=== PATIENT | female | born 1995 | race African-American/Black ===

== ENCOUNTER 2021-12-03 21:50 | Inpatient (IN) ==
[2021-12-03] MEDS ORDERED: ONDANSETRON 4 MG/2 ML VIAL IV PRN (22:02)
[2021-12-03] MEDS ORDERED: CARBOPROST TROMETHAMINE 250 MCG/ML AMP IM PRN (22:02)
[2021-12-03] MEDS ORDERED: TRANEXAMIC ACID 1,000 MG in SODIUM CHLORIDE 0.9% 100 ML IV PRN (22:02)
[2021-12-03] MEDS ORDERED: MEPERIDINE 50 MG/1 ML VIAL IV PRN (22:02)
[2021-12-03] MEDS ORDERED: miSOPROStoL 200 MCG TABLET RECTAL PRN (22:02)
[2021-12-03] MEDS ORDERED: OXYTOCIN/LR 20 UNIT/1,000 ML BAG IV ONE (22:02)
[2021-12-03 22:41] LABS: Basophils # 0.1 10*3/uL (0.0-0.2); Basophils % 0.6 % (0.0-0.8); Eosinophils # 0.1 10*3/uL (0.0-0.87); Eosinophils % 1.1 % (0.00-10.9); Hematocrit 36.7 VOL% (35.7-47.0); Hemoglobin 12.4 GM/DL (12.0-16.0); Immature Granulocytes % 0.4 %; Immature Granulocytes Absolute 0.03 #; Lymphocytes # 1.9 10*3/uL (1.4-4.0); Lymphocytes % 23.1 % (21.3-54.2); Mean Corpuscular HGB Conc 33.8 GM/DL (32-36); Mean Corpuscular Volume 85.2 FL (87-102); Mean Platelet Volume 10.5 FL (9.6-12.0); Monocytes # 1.1 10*3/uL (0.11-0.8); Monocytes % 13.5 % (1.7-12.7); Neutrophils % 61.3 % (38.7-73.9); Platelet Count 297 T/CUMM (130-400); Red Blood Count 4.31 MC/CUMM (3.8-5.5); Red Cell Distribution Width 13.7 % (9.3-17.3); White Blood Count 8.4 T/CUMM (4-12)
[2021-12-03 22:56] LABS: Albumin 3.3 G/DL (3.4-5.0); Bilirubin,Total 0.4 MG/DL (0.20-1.00); Calcium 9.4 MG/DL (8.5-10.1); Potassium 4.1 MMOL/L (3.5-5.1); Total Protein 7.6 G/DL (6.4-8.2); Uric Acid 4.6 MG/DL (2.6-6.0)
[2021-12-03 23:02] LABS: Bilirubin,Urine Small mg/dL (Negative); Blood, Urine Negative (Negative); Glucose,Urine (UA) 100 mg/dL (Negative); Ketones,Urine 15 mg/dL (Negative); Nitrite,Urine Negative (Negative); Protein,Urine 30 mg/dL (Negative); RBC,Urine 0-3 /HPF (0-4); Urine Appearance Clear (Clear); Urine Color Yellow (Yellow); Urine Specific Gravity 1.025 (1.001-1.035)
[2021-12-03 23:03] LABS: Squamous Epithelial Cell,Urine Moderate /HPF (0-10); Trichomonas,Urine Few /HPF (<1)
[2021-12-03 23:05] LABS: INR 0.9; PT Patient Result 9.8 SECS (10.1-12.1); Partial Thromboplastin Time 27.6 SECS (23.7-32.9)
[2021-12-03] MEDS: LACTATED RINGERS 1,000 ML IV SCH (23:47)
[2021-12-04] MEDS ORDERED: AMPICILLIN INJ 2,000 MG in SODIUM CHLORIDE 0.9% 100 ML IV ONE
[2021-12-04 00:50] LABS: Protein/Creatinine Ratio,Urine 0.1 RATIO
[2021-12-04] MEDS: AMPICILLIN INJ 1,000 MG in SODIUM CHLORIDE 0.9% 100 ML IV SCH ×3 (04:18→12:46)
[2021-12-04] MEDS ORDERED: LABETALOL 200 MG TABLET PO SCH (08:00)
[2021-12-04] MEDS ORDERED: BUTORPHANOL 2 MG/ML VIAL IV PRN (10:24)
[2021-12-04] MEDS ORDERED: OXYTOCIN/LR 20 UNIT/1,000 ML BAG IV SCH (11:00)
[2021-12-04] MEDS: LACTATED RINGERS 1,000 ML IV SCH (12:46)
[2021-12-04] MEDS ORDERED: ceFAZolin 3,000 MG in SYRINGE 1 EACH IV ONE (14:49)
[2021-12-04] MEDS ORDERED: FAMOTIDINE 20 MG/2 ML VIAL IV ONE (14:49)
[2021-12-04] MEDS ORDERED: TERBUTALINE 1 MG/1 ML VIAL ONE (14:49)
[2021-12-04] MEDS ORDERED: CITRIC ACID/SODIUM CITRATE 30 ML UDCUP PO ONE (14:49)
[2021-12-04] MEDS ORDERED: OXYTOCIN 10 UNIT/ML VIAL IM ONE (14:51)
[2021-12-04] MEDS ORDERED: OXYTOCIN/LR 30 UNIT/1,000 ML BAG IV ONE (14:51)
[2021-12-04] MEDS ORDERED: miSOPROStoL 200 MCG TABLET ONE (14:53)
[2021-12-04] MEDS ORDERED: CARBOPROST TROMETHAMINE 250 MCG/ML AMP IM ONE (14:53)
[2021-12-04] MEDS ORDERED: propofoL 200 MG/20 ML VIAL IV ONE (14:54)
[2021-12-04] MEDS ORDERED: LIDOCAINE 2% 5 ML VIAL ONE (14:54)
[2021-12-04] MEDS ORDERED: SUCCINYLCHOLINE 200 MG/10 ML VIAL ONE (14:54)
[2021-12-04] MEDS ORDERED: SEVOFLURANE 1 UNIT/15 MINUTE INH ONE ×2 (14:54→15:39)
[2021-12-04] MEDS ORDERED: MIDAZOLAM 2 MG/2 ML VIAL ONE (14:58)
[2021-12-04] MEDS ORDERED: fentaNYL 100 MCG/2 ML VIAL ONE (14:58)
[2021-12-04] MEDS ORDERED: TERBUTALINE 1 MG/1 ML VIAL SUBCUT ONE (15:00)
[2021-12-04 15:14] LABS: Protein,Urine Negative (Negative); Urine Appearance Clear (Clear); Urine Color Yellow (Yellow)
[2021-12-04 15:15] LABS: Bilirubin,Urine Negative (Negative); Blood, Urine Negative (Negative); Glucose,Urine (UA) Negative (Negative); Ketones,Urine 15 mg/dL (Negative); Nitrite,Urine Negative (Negative)
[2021-12-04 15:28] LABS: Cord Arterial Blood HCO3 23.5 MMOL/L
[2021-12-04 15:30] LABS: Cord Venous Blood HCO3 23.6 MMOL/L; Cord Venous Blood PO2 37.8
[2021-12-04 15:33] LABS: RBC,Urine 15-20 /HPF (0-4); Squamous Epithelial Cell,Urine 1+ /HPF (0-10)
[2021-12-04] MEDS ORDERED: DEXAMETHASONE 4 MG/1 ML VIAL ONE (15:36)
[2021-12-04] MEDS ORDERED: GLYCOPYRROLATE 0.4 MG/2 ML VIAL ONE (15:36)
[2021-12-04] MEDS ORDERED: ACETAMINOPHEN INJ 1,000 MG/100 ML VIAL IV ONE (15:36)
[2021-12-04] MEDS ORDERED: ONDANSETRON 4 MG/2 ML VIAL ONE ×2 (15:36→15:54)
[2021-12-04] MEDS ORDERED: NEOSTIGMINE 10 MG/10 ML VIAL ONE (15:37)
[2021-12-04] MEDS ORDERED: HYDROmorphone 1 MG/1 ML SYRINGE ONE (15:41)
[2021-12-04] MEDS ORDERED: RHO(D) IMMUNE GLOBULIN 300 MCG SYRINGE IM ONE (16:11)
[2021-12-04] MEDS ORDERED: ACETAMINOPHEN 325 MG TABLET PO PRN (16:11)
[2021-12-04] MEDS ORDERED: OXYTOCIN/LR 20 UNIT/1,000 ML BAG IV ONE (16:11)
[2021-12-04] MEDS ORDERED: IBUPROFEN 800 MG TABLET PO PRN (16:11)
[2021-12-04] MEDS ORDERED: ONDANSETRON 4 MG/2 ML VIAL IV PRN (16:11)
[2021-12-04] MEDS ORDERED: SIMETHICONE CHEW 80 MG TABLET PO PRN (16:11)
[2021-12-04] MEDS ORDERED: LACTATED RINGERS 1,000 ML IV SCH (16:30)
[2021-12-04] MEDS: KETOROLAC 30 MG/1 ML VIAL IV SCH ×2 (16:36→23:19)
[2021-12-04] MEDS: ACETAMINOPHEN 500 MG TABLET PO SCH (23:19)
[2021-12-04] MEDS: DOCUSATE SODIUM 100 MG CAPSULE PO SCH (23:19)
[2021-12-04 23:22] LABS: Basophils % 0.3 % (0.0-0.8); Hematocrit 35.7 VOL% (35.7-47.0); Immature Granulocytes % 0.5 %; Immature Granulocytes Absolute 0.08 #; Lymphocytes # 1.4 10*3/uL (1.4-4.0); Lymphocytes % 8.9 % (21.3-54.2); Mean Corpuscular HGB Conc 33.6 GM/DL (32-36); Mean Corpuscular Volume 85.4 FL (87-102); Mean Platelet Volume 10.3 FL (9.6-12.0); Monocytes # 1.2 10*3/uL (0.11-0.8); Monocytes % 7.5 % (1.7-12.7); Neutrophils % 82.8 % (38.7-73.9); Platelet Count 267 T/CUMM (130-400); Red Blood Count 4.18 MC/CUMM (3.8-5.5); Red Cell Distribution Width 13.3 % (9.3-17.3); White Blood Count 15.6 T/CUMM (4-12)
[2021-12-05 04:54] LABS: Basophils # 0.1 10*3/uL (0.0-0.2); Basophils % 0.5 % (0.0-0.8); Eosinophils % 0.1 % (0.00-10.9); Hematocrit 35.9 VOL% (35.7-47.0); Hemoglobin 11.8 GM/DL (12.0-16.0); Immature Granulocytes % 0.4 %; Immature Granulocytes Absolute 0.07 #; Lymphocytes # 2.2 10*3/uL (1.4-4.0); Lymphocytes % 13.4 % (21.3-54.2); Mean Corpuscular HGB Conc 32.9 GM/DL (32-36); Mean Corpuscular Volume 85.9 FL (87-102); Monocytes # 1.9 10*3/uL (0.11-0.8); Monocytes % 11.6 % (1.7-12.7); Platelet Count 252 T/CUMM (130-400); Red Blood Count 4.18 MC/CUMM (3.8-5.5); Red Cell Distribution Width 13.3 % (9.3-17.3); White Blood Count 16.6 T/CUMM (4-12)
[2021-12-05] MEDS: KETOROLAC 30 MG/1 ML VIAL IV SCH ×2 (04:57→12:57)
[2021-12-05] MEDS: ACETAMINOPHEN 500 MG TABLET PO SCH (05:04)
[2021-12-05] MEDS: MAGNESIUM HYDROXIDE SUSP 30 ML UDCUP PO PRN ×2 (08:56→22:00)
[2021-12-05] MEDS: METOCLOPRAMIDE 10 MG TABLET PO SCH ×3 (08:56→23:23)
[2021-12-05] MEDS: MULTIVITAMIN (PRENATAL) TABLET PO SCH (08:57)
[2021-12-05] MEDS: DOCUSATE SODIUM 100 MG CAPSULE PO SCH ×2 (08:57→22:00)
[2021-12-05] MEDS ORDERED: KETOROLAC 30 MG/1 ML VIAL IV SCH (13:00)
[2021-12-06] MEDS: DOCUSATE SODIUM 100 MG CAPSULE PO SCH (08:00)
[2021-12-06] MEDS: MULTIVITAMIN (PRENATAL) TABLET PO SCH (08:00)
[2021-12-06] MEDS: METOCLOPRAMIDE 10 MG TABLET PO SCH (08:01)
[2021-12-06 11:55] VITALS: BP 148/80
== END 2021-12-06 12:30 | disposition home or self-care (01) | DRG 540 ==
LOC: N.LDOUT 21:50 → N.LD 21:53 → N.OB 12-04 21:45
PROVIDERS: ADMIT Obstetrics & Gynecology; ATTEND Obstetrics & Gynecology
PROC: LDCSECT (ICD-10-PCS; 2021-12-04 15:00)